=== PATIENT | male | born 1975 | race Hispanic/Latino ===

== ENCOUNTER 2016-09-22 10:12 | Emergency (ER) | payer SELFPAY ==
[2016-09-22] MEDS ORDERED: OPTIRAY 350 100 ML VIAL HMH IV ONE (10:13)
[2016-09-22] MEDS ORDERED: ONDANSETRON 4 MG VIAL ONE (12:48)
[2016-09-22] MEDS ORDERED: SODIUM CHLORIDE 0.9% 2,000 ML ONE (12:49)
[2016-09-22] MEDS ORDERED: DILAUDID 1 MG/ML AMP ONE (12:49)
== END 2016-09-22 15:46 | disposition home or self-care (01) ==
LOC: ER 10:12
DX: R10.84 Generalized abdominal pain (principal); R11.2 Nausea with vomiting, unspecified; R19.7 Diarrhea, unspecified; I10 Essential (primary) hypertension; F17.210 Nicotine dependence, cigarettes, uncomplicated
CPT/HCPCS: 36415; 74177; 80053; 82274; 83690; 85025; 96361; 96374; 96375